=== PATIENT | female | born 1970 | race African-American/Black ===

== ENCOUNTER 2016-10-27 15:29 | Emergency (ER) | payer OTHER ==
[~2016-10-27] VITALS: Ht 157.5 cm; Wt 51.3 kg
[~2016-10-27 15:29] MED LIST: ONDANSETRON ODT4 MG ORAL; PEPCID20 MG ORAL; ZOFRAN4 MG ORAL
[2016-10-27] MEDS ORDERED: NORCO 5-325 TA1 EAC1 ORAL (16:11)
[2016-10-27] MEDS ORDERED: IBUPROFEN600 MG ORAL (16:11)
[2016-10-27 16:19] VITALS: BP 129/80
[2016-10-27 16:22] VITALS: BP 129/80
--- NOTE | 2016-10-27 22:09 | Emergency Room Report ---
History of Present Illness General Chief Complaint: Toothache Source: Patient Present Illness HPI The patient is a 46-year-old female presenting with dental pain which began 2 days prior. Pain is described as an 8/10 constant dull ache and does not radiate from the right side. Pain worse with chewing. The patient states that she has wisdom teeth growing in. She has tried Motrin at home which has not helped. She denies any other symptoms including N, V, F, chills, sore throat Allergies: Coded Allergies: No Known Allergies (Unverified , 04/02/15) Patient History Past Medical History: see triage record Pertinent Family History: none Last Menstrual Period: last month Now: No Reviewed Nursing Documentation: PMH: Agreed, PSxH: Agreed Nursing Documentation-PMH Past Medical History: No Stated History Review of Systems All Other Systems: negative except mentioned in HPI Physical Exam Vital Signs Date Time Temp Pulse Resp B/P Pulse Ox O2 Delivery O2 Flow Rate FiO2 10/27/16 15:51 98.2 84 18 134/85 99 Room Air Sp02 EP Interpretation: reviewed, normal General Appearance: no apparent distress, alert, GCS 15, non-toxic Head: normocephalic, atraumatic Eyes: bilateral eye PERRL, bilateral eye normal inspection ENT: hearing grossly normal, no angioedema, normal voice, other - R upper molar decay. Poor dentition Neck: full range of motion, supple/symm/no masses Neurologic: alert, oriented x3, responsive, motor strength/tone normal, sensory intact, speech normal Psychiatric: judgement/insight normal, memory normal, mood/affect normal, no suicidal/homicidal ideation Skin: normal color, no rash, warm/dry, well hydrated Lymphatic: no adenopathy Medical Decision Making PA Attestation Drt. Dewitt is my supervising physician. Patient management was discussed with my supervising physician Diagnostic Impression: Primary Impression: Pain, dental ER Course The patient is a 46-year-old female presenting with dental pain which began 2 days prior Diagnoses considered but not limited to: Dental bart, dental abscess, toothache , gingivitis Physical exam: Afebrile. No apparent distress There is poor dentition throughout. No tonsillar edema or erythema. Right upper molar decay. No surrounding erythema or edema. Tender to palpation over this tooth. No signs of infection. Patient will be discharged home with pain medication and will followup with dentist as soon as possible. ER precautions are given Last Vital Signs Date Time Temp Pulse Resp B/P Pulse Ox O2 Delivery O2 Flow Rate FiO2 10/27/16 16:22 98.6 80 20 129/80 100 Room Air Status: improved Disposition: HOME, SELF-CARE Condition: Improved Scripts Hydrocodone Bit/Acetaminophen 5-325* (NORCO 5-325 TABLET*) 1 Each Tablet 1 TAB ORAL Q4H Y for For Pain, #10 TAB Prov: CARRIE TIMMONS 10/27/16 Ibuprofen* (MOTRIN*) 600 Mg Tablet 600 MG ORAL Q8H Y for For Pain, #30 TAB 0 Refills Prov: CARRIE TIMMONS 10/27/16 Referrals: [facility]ERR[facility] (PCP) Patient Instructions: Dental Pain Additional Instructions: I discussed my findings with the patient. All questions and concerns have been answered. Treatment and medication compliance have been addressed. I advised the patient that they need to follow up with PMD in 3-5 days. Return to ED if symptoms worsen, new symptoms arise, or if needed for any reason. Patient verbalized understanding of discharge instructions. The patient will follow up with dentist as soon as possible CARRIE TIMMONS October 27, 2016 22:09
== END 2016-10-27 16:22 | disposition home or self-care (01) ==
LOC: EMR 16:08
DX: K08.89 Other specified disorders of teeth and supporting structures (principal)
CPT/HCPCS: 99284

== ENCOUNTER 2017-08-16 11:31 | Emergency (ER) | payer OTHER ==
[~2017-08-16] VITALS: Ht 157.5 cm; Wt 52.2 kg
[~2017-08-16 11:31] MED LIST changes: +IBUPROFEN600 MG ORAL; +NORCO 5-325 TA1 EAC1 ORAL
[2017-08-16] MEDS ORDERED: NKM (12:02)
--- NOTE | 2017-08-16 12:31 | Emergency Room Report ---
History of Present Illness General Chief Complaint: Abdominal Pain Source: Patient Present Illness HPI 47 yo female patient presents to ER for hematuria and dysuria x2 days. Complains of urgency and frequency during this time. Patient also reports burning pain. States feels like last time she had a bladder infection Patient denies vaginal discharge Reports sexually monogamous relation ship, no rash or open wounds. Last PAP was normal, no hx of ovarian cysts. LMP was 1 week ago, normal for her. Hx of , denies vaginal births. Denies fever, chest pain, SOB Allergies: Coded Allergies: No Known Allergies (Unverified , 04/02/15) Patient History Past Medical History: see triage record Social History: Reports: smoking Last Menstrual Period: 08/06/17 Now: No Reviewed Nursing Documentation: PMH: Agreed, PSxH: Agreed Nursing Documentation-PMH Past Medical History: No Stated History Review of Systems All Other Systems: negative except mentioned in HPI Physical Exam Vital Signs Date Time Temp Pulse Resp B/P (MAP) Pulse Ox O2 Delivery O2 Flow Rate FiO2 08/16/17 11:57 98.8 75 17 114/71 98 Room Air 98.8 Sp02 EP Interpretation: reviewed, normal General Appearance: well appearing, no apparent distress, alert, GCS 15, non- toxic Head: normocephalic, atraumatic Eyes: bilateral eye normal inspection, bilateral eye PERRL ENT: hearing grossly normal, normal pharynx, normal voice, uvula midline, moist mucus membranes Respiratory: normal inspection, lungs clear, normal breath sounds, no accessory muscle use, no wheezing, speaking full sentences Cardiovascular #1: regular rate, rhythm Gastrointestinal: normal bowel sounds, non tender, soft, no mass, non-distended , no guarding, no rebound Genitourinary: no CVA tenderness, other - suprapubic tenderness Musculoskeletal: back normal, digits/nails normal, gait/station normal, normal range of motion, no calf tenderness Neurologic: alert, oriented x3, responsive, motor strength/tone normal, normal gait Psychiatric: mood/affect normal Skin: no rash Medical Decision Making PA Attestation Dr. Brock is my supervising Physician whom patient management has been discussed with. Diagnostic Impression: Primary Impression: Urinary tract infection ER Course Pt presents to ED c/o hematuria and dysuria. DDX considered but are not limited to cystitis, pyelonephritis, vaginitis. VITAL SIGNS are WNL, patient is afebrile. ORDERS: UA with reflux ED COURSE: No intervention required at this time. Patient declined pain medication. UA positive for hematuria, nitrites, WBC, and leukocyte esterase. Results indicate UTI, will treat patient with abx. Patient informed of results. Patient reports understanding and agreement to treatment plan. Patient is resting comfortably in chair, nontoxic appearing, in no acute distress. Patient states they feel better and are ready to go home. DISCHARGE -Rx provided for Macrobid -Rx provided for Phenazopyridine for pain. Will provide with patient care instructions and any necessary prescriptions. Patient understands and agrees to treatment plan. Patient encouraged to drink plenty of fluids. Patient to take medication as instructed. Care plan and follow-up instructions provided. Patient questions asked and answered. Patient instructed to follow-up with primary care provider in 3 - 5 days for further treatment and referral to urology. ER precautions given. Patient instructed to return to ER immediately for any new or worsening of symptoms. Including but not limited to fever, worsening pain , intractable vomiting. Labs Test 08/16/17 12:05 Urine Color Red Urine Appearance Turbid Urine pH 7 (4.5-8.0) Urine Specific [place] 1.010 (1.005-1.035) Urine Protein 4+ (NEGATIVE) Urine Glucose (UA) Negative (NEGATIVE) Urine Ketones 1+ (NEGATIVE) Urine Occult Blood 5+ (NEGATIVE) Urine Nitrite Positive (NEGATIVE) Urine Bilirubin Negative (NEGATIVE) Urine Urobilinogen 4 MG/DL (0.0-1.0) Urine Leukocyte Esterase 3+ (NEGATIVE) Urine RBC 40-60 /HPF (0 - 2) Urine WBC 5-10 /HPF (0 - 2) Urine Squamous Epithelial Cells Few /LPF (NONE/OCC) Urine Bacteria Few /HPF (NONE) Last Vital Signs Date Time Temp Pulse Resp B/P (MAP) Pulse Ox O2 Delivery O2 Flow Rate FiO2 08/16/17 11:57 98.8 75 17 114/71 98 Room Air 98.8 Disposition: HOME, SELF-CARE Condition: Stable Scripts Phenazopyridine Hcl* (PYRIDIUM*) 100 Mg Tablet 100 MG ORAL THREE TIMES A DAY for 7 Days, #21 TAB Prov: Yoni Patton 08/16/17 Nitrofurantoin Monohyd/M-Cryst* (MACROBID 100 MG*) 100 Mg Capsule 100 MG ORAL EVERY 12 HOURS for 7 Days, #14 CAP Prov: Yoni Patton 08/16/17 Patient Instructions: Urinary Tract Infection, [id number] Additional Instructions: Followup with primary care provider in 3 -5 days for further treatment and referral to urology as needed. Take medications as directed. Patient questions asked and answered. ER precautions given, patient instructed to return to ER immediately for any new or worsening of symptoms. Yoni Patton Aug 16, 2017 12:31
[2017-08-16 12:37] LABS: APPEARANCE,URINE TURBID; BILIRUBIN, URINE NEGATIVE (NEGATIVE); GLUCOSE, URINE (UA) NEGATIVE (NEGATIVE); KETONES,URINE 1+ (NEGATIVE); LEUKOCYTE ESTERASE ,URINE 3+ (NEGATIVE); NITRITE,URINE POSITIVE (NEGATIVE); PH,URINE 7 (4.5-8.0); PROTEIN,URINE 4+ (NEGATIVE); UROBILINOGEN,URINE 4 MG/DL (0.0-1.0)
[2017-08-16 12:39] LABS: COLOR,URINE RED
[2017-08-16] MEDS ORDERED: NITROFURANTOIN100 M2 ORAL (12:58)
[2017-08-16] MEDS ORDERED: PHENAZOPYRIDIN100 MG ORAL (12:58)
[2017-08-16 13:02] VITALS: BP 114/71
== END 2017-08-16 13:03 | disposition home or self-care (01) ==
LOC: EMR 12:40
DX: N39.0 Urinary tract infection, site not specified (principal); R31.9 Hematuria, unspecified
CPT/HCPCS: 81001; 99283